=== PATIENT | female | born 1990 | race Caucasian/White ===

== ENCOUNTER 2022-05-12 00:33 | Inpatient (IN) | payer MEDICAID, OTHER ==
[~2022-05-12] VITALS: Ht 157.5 cm; Wt 94.3 kg
[2022-05-12] VITALS (16 sets, daily range): BP systolic 118–150; BP diastolic 56–81
[2022-05-12] MEDS ORDERED: LACTATED RINGERS 1,000 ML IV ONE (00:56)
[2022-05-12] MEDS ORDERED: MINERAL OIL 30 ML UDC TOP PRN (01:00)
[2022-05-12] MEDS ORDERED: D5 LR IV SOLUTION 1,000 ML IV SCH (01:00)
[2022-05-12] MEDS ORDERED: OXYTOCIN PRE-MIX DRIP 500 ML IV ONE (01:01)
[2022-05-12 01:06] LABS: BASOPHILS % (AUTO) 0 % (0-10); EOSINOPHILS # (AUTO) 0.3 10^3/uL (0.0-0.3); EOSINOPHILS % (AUTO) 2 % (0-10); HEMATOCRIT 37 % (35-52); HEMOGLOBIN 12.9 g/dL (11.5-16.0); LYMPHOCYTES # (AUTO) 1.7 10^3/uL (1.0-4.0); LYMPHOCYTES % (AUTO) 13 % (12-44); MEAN CORPUSCULAR HEMOGLOBIN 30 pg (25-34); MEAN CORPUSCULAR HGB CONC 35 g/dL (32-36); MEAN CORPUSCULAR VOLUME 87 fL (80-99); MEAN PLATELET VOLUME 10.3 fL (9.0-12.2); MONOCYTES # (AUTO) 0.8 10^3/uL (0.0-1.0); MONOCYTES % (AUTO) 6 % (0-12); NEUTROPHILS # (AUTO) 10.9 10^3/uL (1.8-7.8); NEUTROPHILS % (AUTO) 79 % (42-75); PLATELET COUNT 219 10^3/uL (130-400); WHITE BLOOD COUNT 13.9 10^3/uL (4.3-11.0)
[2022-05-12] MEDS ORDERED: LIDOCAINE 1% INJ 20 ML VIAL ONE (01:55)
[2022-05-12] MEDS ORDERED: TETANUS,DIPTH,PERTUSS P/F (BOOSTRIX) 0.5 ML VIAL IM ONE (02:30)
[2022-05-12] MEDS ORDERED: BENZOCAINE/MENTHOL (DERMOPLAST) 56 ML CAN TP PRN (02:30)
[2022-05-12] MEDS ORDERED: WITCH HAZEL(TUCKS) 40 EA JAR TOP PRN (02:30)
[2022-05-12] MEDS ORDERED: MEASLES,MUMPS,RUBELLA 1 EA INJ SQ ONE (02:30)
--- NOTE | 2022-05-12 02:34 | History & Physical-OB ---
OB - Chief Complaint & HPI Date/Time Date of Admission: Date of Admission: May 12, 2022 at 00:51 Date seen by a Provider: May 12, 2022 Time Seen by a Provider: 01:30 Chief Complaint/History OB-Reason for Admission/Chief: Onset of Labor Hx : 3 Hx Para: 2 Gestational Age in Weeks: 39 Gestational Age in Days: 2 History of Labs A+, Ab neg Normal GTT GBS neg Allergies and Home Medications Allergies Coded Allergies: No Known Drug Allergies (Unverified , 05/12/22) Patient Home Medication List Home Medication List Reviewed: Yes OB - History Hx of Present Care: Yes Ultrasounds: Normal mid trimester US Obstetrical Complications: None Medical Complications: None Information Induced Hypertension: No Maternal Gestational Diabetes: No Hemorrhage: No Obstetrical History Hx : 3 Hx Para: 2 Number of Living Children: 2 Patient Past Medical History None Social History/Family History Alcohol Use: Denies Use Recreational Drug Use: No Smoking Cessation: Never smoker Immunizations RPR/VDRL: Negative GBS Status: Negative HBsAG: Negative OB - Admission Exam Physical Exam HEENT: NCAT Heart: Rhythm Normal Lungs: Clear Abdomen: Gravid Cervical Dilatation: 8cm Effacement: 100% Station: -2 Membranes: Intact Heart Rate: 140's Accelerations: Accelerations Present Decelerations: Early Decelerations Short Term Variability: Present Chinese Language Professor Variability: Average (6-25) Contractions on Admission: < 5 Minutes Apart Intensity: Firm Labs Laboratory Tests Test 05/12/22 00:45 Range/Units White Blood Count 13.9 H 4.3-11.0 10^3/uL Red Blood Count 4.30 3.80-5.11 10^6/uL Hemoglobin 12.9 11.5-16.0 g/dL Hematocrit 37 35-52 % Mean Corpuscular Volume 87 80-99 fL Mean Corpuscular Hemoglobin 30 25-34 pg Mean Corpuscular Hemoglobin Concent 35 32-36 g/dL Red Cell Distribution Width 13.1 10.0-14.5 % Platelet Count 219 130-400 10^3/uL Mean Platelet Volume 10.3 9.0-12.2 fL Immature Granulocyte % (Auto) 1 % Neutrophils (%) (Auto) 79 H 42-75 % Lymphocytes (%) (Auto) 13 12-44 % Monocytes (%) (Auto) 6 0-12 % Eosinophils (%) (Auto) 2 0-10 % Basophils (%) (Auto) 0 0-10 % Neutrophils # (Auto) 10.9 H 1.8-7.8 10^3/uL Lymphocytes # (Auto) 1.7 1.0-4.0 10^3/uL Monocytes # (Auto) 0.8 0.0-1.0 10^3/uL Eosinophils # (Auto) 0.3 0.0-0.3 10^3/uL Basophils # (Auto) 0.0 0.0-0.1 10^3/uL Immature Granulocyte # (Auto) 0.1 0.0-0.1 10^3/uL OB - Assessment/Plan/Diagnosis Assessment Assessment: active labor Admission Dx Third trimester 39 week gestation Admission Status: Inpatient Order (span 2 midnights) Reason for Inpatient Admission: labor and post care Plan Other Plan 32 yo @ 39.2 wga here in active labor Plan - Expectant management - GBS neg Copy Copies To 1: KAYLA FINN MD, HOLLY R MD May 12, 2022 02:34
--- NOTE | 2022-05-12 02:46 | OB Labor & Delivery Record ---
Vag Delivery Note Vag Delivery Note Date of Delivery: 05/12/22 Preoperative Diagnosis: Sivan Tuttle is a (32 /Para 3 / 2,Gestational Age (wks)39with [2 days] Postoperative Diagnosis: Same Surgeon: Merline Palacios MD Team Guide: [Silvina Beckman, MS4] Anesthesia: [None] Delivery Type: [Spontaneous vaginal delivery] Findings: Viable [female] , apgars [9/9], weight [3040gm] Lacerations: None Intact placenta with 3 vessel cord. No nuchal cord, body cord or shoulder dystocia Estimated Blood Loss: [125] ml Complications: None Condition: Stable Description of Procedure: The patient is a 32 year old female who presented in active labor. She was admitted and informed consent was obtained. Her labor course was unremarkable. She progressed to complete dilatation and began to push. She was then set up for delivery. The infant's head was delivered atraumatically in the [CECILIA] position. The shoulders and remainder of the 's body were then delivered without difficulty. Upon delivery, the head was held below the level of the perineum and the mouth and nares were bulb suctioned. The cord was doubly clamped and cut and the infant was handed off to the pediatric staff. An intact placenta with 3-vessel cord delivered via [place] and there was found to be minimal bleeding.~ Vigorous fundal massage was performed and the fundus was found to be firm. IV oxytocin was given. Examination of the vagina and perineum revealed no lacerations. Sponge, instrument and needle counts were correct. Mom and baby were both in stable condition in the labor suite. Vitals - Labs Labs Laboratory Tests 05/12/22 00:45: White Blood Count 13.9H, Red Blood Count 4.30, Hemoglobin 12.9, Hematocrit 37, Mean Corpuscular Volume 87, Mean Corpuscular Hemoglobin 30, Mean Corpuscular Hemoglobin Concent 35, Red Cell Distribution Width 13.1, Platelet Count 219, Mean Platelet Volume 10.3, Immature Granulocyte % (Auto) 1, Neutrophils (%) (Auto) 79H, Lymphocytes (%) (Auto) 13, Monocytes (%) (Auto) 6, Eosinophils (%) (Auto) 2, Basophils (%) (Auto) 0, Neutrophils # (Auto) 10.9H, Lymphocytes # (Auto) 1.7, Monocytes # (Auto) 0.8, Eosinophils # (Auto) 0.3, Basophils # (Auto) 0.0, Immature Granulocyte # (Auto) 0.1 SILVINA BECKMAN May 12, 2022 02:46
[2022-05-12] MEDS: OXYTOCIN PRE-MIX DRIP 500 ML IV SCH ×2 (02:50→02:58)
[2022-05-12] MEDS: ACETAMINOPHEN 500 MG TAB (TYLENOL) PO SCH ×3 (03:04→16:19)
[2022-05-12] MEDS: IBUPROFEN 600 MG (MOTRIN) TAB PO SCH ×3 (03:04→16:19)
[2022-05-12] MEDS ORDERED: CATHETER FLUSH 10 ML SYR IV SCH ×2 (06:00)
[2022-05-12] MEDS: DOCUSATE SODIUM 100 MG (COLACE) CAP PO SCH ×2 (09:34→21:16)
--- NOTE | 2022-05-12 12:04 | Postpartum Progress Note ---
Note Note Day # 1 Subjective: Patient is without complaints. Ambulating, voiding. Tolerating a regular diet without nausea or vomiting. Normal lochia. Pain is well controlled with oral pain medications. Breast feeding. Objective: Physical Exam: General - Alert and oriented, no apparent distress Abdomen - Soft, appropriately tender to palpation, non-distended, fundus firm at umbilicus Extremities - no edema, negative Re's bilaterally Assessment: 32 yo G3 now P3 post- day # 1, status post uncomplicated vaginal delivery. Recovering well, hemodynamically stable Plan: Routine care. Encourage breast feeding. Encourage ambulation. Ferrous sulfate supplementation. Plan for discharge tomorrow Vitals - Labs Vital Signs - I&O Vital Signs Date Time Temp Pulse Resp B/P (MAP) Pulse Ox O2 Delivery O2 Flow Rate FiO2 05/12/22 09:38 36.5 58 18 133/65 (87) 98 Room Air 05/12/22 05:08 36.4 94 18 120/58 (78) 97 Room Air 05/12/22 04:11 83 120/56 (77) Room Air 05/12/22 03:56 98 125/62 (83) Room Air 05/12/22 03:41 86 127/62 (83) Room Air 05/12/22 03:26 85 132/57 (82) Room Air 05/12/22 03:11 90 130/63 (85) Room Air 05/12/22 02:56 87 16 131/60 (83) Room Air 05/12/22 02:41 90 16 137/64 (88) Room Air 05/12/22 02:26 90 18 134/72 (92) Room Air 05/12/22 02:17 94 18 148/79 (102) Room Air 05/12/22 01:50 86 18 150/76 (100) Room Air 05/12/22 01:20 100 18 137/81 (99) 99 Room Air 05/12/22 01:00 78 18 99 Room Air 05/12/22 00:35 36.2 88 18 148/74 (98) 99 Room Air I & O 05/12/22 07:00 Intake Total 500 ml Balance 500 ml Labs Laboratory Tests 05/12/22 00:45: White Blood Count 13.9H, Red Blood Count 4.30, Hemoglobin 12.9, Hematocrit 37, Mean Corpuscular Volume 87, Mean Corpuscular Hemoglobin 30, Mean Corpuscular Hemoglobin Concent 35, Red Cell Distribution Width 13.1, Platelet Count 219, Mean Platelet Volume 10.3, Immature Granulocyte % (Auto) 1, Neutrophils (%) (Auto) 79H, Lymphocytes (%) (Auto) 13, Monocytes (%) (Auto) 6, Eosinophils (%) (Auto) 2, Basophils (%) (Auto) 0, Neutrophils # (Auto) 10.9H, Lymphocytes # (Auto) 1.7, Monocytes # (Auto) 0.8, Eosinophils # (Auto) 0.3, Basophils # (Auto) 0.0, Immature Granulocyte # (Auto) 0.1 KAYLA FINN MD May 12, 2022 12:04
[2022-05-13 00:01] VITALS: BP 112/57
[2022-05-13] MEDS: IBUPROFEN 600 MG (MOTRIN) TAB PO SCH ×2 (00:05→08:27)
[2022-05-13] MEDS: ACETAMINOPHEN 500 MG TAB (TYLENOL) PO SCH ×2 (00:10→08:27)
[2022-05-13 06:26] LABS: BASOPHILS # (AUTO) 0.1 10^3/uL (0.0-0.1); BASOPHILS % (AUTO) 1 % (0-10); EOSINOPHILS # (AUTO) 0.4 10^3/uL (0.0-0.3); EOSINOPHILS % (AUTO) 3 % (0-10); HEMATOCRIT 37 % (35-52); HEMOGLOBIN 12.5 g/dL (11.5-16.0); LYMPHOCYTES # (AUTO) 2.5 10^3/uL (1.0-4.0); LYMPHOCYTES % (AUTO) 22 % (12-44); MEAN CORPUSCULAR HEMOGLOBIN 30 pg (25-34); MEAN CORPUSCULAR HGB CONC 34 g/dL (32-36); MEAN CORPUSCULAR VOLUME 89 fL (80-99); MEAN PLATELET VOLUME 10.6 fL (9.0-12.2); MONOCYTES # (AUTO) 0.5 10^3/uL (0.0-1.0); MONOCYTES % (AUTO) 5 % (0-12); NEUTROPHILS # (AUTO) 7.7 10^3/uL (1.8-7.8); NEUTROPHILS % (AUTO) 69 % (42-75); PLATELET COUNT 174 10^3/uL (130-400); WHITE BLOOD COUNT 11.3 10^3/uL (4.3-11.0)
[2022-05-13 08:20] VITALS: BP 126/76
[2022-05-13] MEDS: DOCUSATE SODIUM 100 MG (COLACE) CAP PO SCH (08:26)
--- NOTE | 2022-05-13 09:47 | Discharge Summary ---
Diagnosis/Chief Complaint Date of Admission May 12, 2022 at 00:51 Date of Discharge 05/13/22 Admission Diagnosis Admission Diagnosis Third Trimester 38 week gestation Discharge Summary-Simple/Stand Discharge Physical Examination Allergies: Coded Allergies: No Known Drug Allergies (Unverified , 05/12/22) Vitals & I&Os Vital Sign - Last 12Hours Date Time Temp Pulse Resp B/P (MAP) Pulse Ox O2 Delivery O2 Flow Rate FiO2 05/13/22 08:20 36.3 73 18 126/76 (93) 98 Room Air Hospital Course See final discharge diagnosis. Discharge Instructions to patient/family Please see electronic discharge instructions given to patient. Discharge Medications Reviewed and agree with Discharge Medication list on patient's Discharge Instruction sheet KAYLA FINN MD May 13, 2022 09:47
[2022-05-13] MEDS ORDERED: DOCU100C37 PO (09:48)
[2022-05-13] MEDS ORDERED: IBUP-844 PO (09:48)
--- NOTE | 2022-05-13 09:49 | Discharge Summary ---
Discharge Inst-[facility] Reconcile Patient Problems Problems Reviewed?: Yes Depart Medications New, Converted or Re-Newed RX: Transmitted to Pharmacy New Medications: Docusate Sodium (Docusate Sodium) 100 Mg Capsule 100 MG PO BID, #28 CAP Ibuprofen (Ibu) 600 Mg Tablet 600 MG PO Q6H, #30 TAB Follow Up/Instructions Goal/Follow Up: [address] Palacios Activity Activity: Activity as Tolerated Driving Instructions: You May Drive Nothing Inside Vagina: No Douching, No [place], No Tampons Diet Discharge Diet: No Restrictions Symptoms to Report to : Swelling Increased, Bleeding Excessive, Fever Over 101 Degrees F, Shortness of Breath, Weight Gain Over 2 Pounds KAYLA PALACIOS MD May 13, 2022 09:49
[2022-05-13 14:00] VITALS: BP 126/76
[2022-05-13 14:30] VITALS: BP 133/64
== END 2022-05-13 14:00 | disposition home or self-care (01) | DRG 807 ==
LOC: WSo 00:33 → LDRP 00:34 → WSo 00:51 → LDRP 05:00
PROVIDERS: ADMIT Family Medicine; ATTEND Family Medicine
PROC: 10E0XZZ Delivery of Products of Conception, External Approach (ICD-10-PCS; principal; 2022-05-12)
DX: O80 Encounter for full-term uncomplicated delivery (principal); Z37.0 Single live birth; Z3A.39 39 weeks gestation of pregnancy; Z28.310 Unvaccinated for COVID-19
CPT/HCPCS: 36415; 85025; 86780; 86850; 86900; 86901; 99212